=== PATIENT | female | born 1935 | race African-American/Black ===

== ENCOUNTER 2020-06-22 06:30 | Inpatient (IN) | payer MEDICARE ==
[~2020-06-22] VITALS: Ht 165.1 cm; Wt 75.7 kg
[2020-06-22 06:32] VITALS: BP 176/77
[2020-06-22 08:15] LABS: CALCIUM 9.7 mg/dL (8.5-10.1); CREATININE 1.2 mg/dL (0.6-1.0); POTASSIUM 3.9 mmol/L (3.5-5.1)
[2020-06-22 08:23] LABS: ALBUMIN 3.5 g/dL (3.4-5.0); TOTAL BILIRUBIN 0.9 mg/dL (0.2-1.0); TOTAL PROTEIN 7.4 g/dL (6.4-8.2)
[2020-06-22 08:57] LABS: ABSOLUTE NEUTROPHILS 4.6 thou/uL (1.4-8.2); BASOPHILS 1.2 % (0.0-2.0); EOSINOPHILS 1.3 % (0.0-3.0); HEMATOCRIT 39.8 % (37.0-47.0); HEMOGLOBIN 12.9 gm/dL (12.0-15.0); LYMPHOCYTES 20.1 % (24.0-44.0); MCH 28.5 pg (26.0-34.0); MCHC 32.4 g/dL (28.0-37.0); MCV 87.9 fL (80.0-100.0); MONOCYTES 11.2 % (1.0-8.0); POLYS 66.2 % (36.0-66.0); RBC 4.53 mil/uL (4.20-5.00); RDW 14.1 % (10.5-14.5)
[2020-06-22 09:21] LABS: URINE BILIRUBIN NEGATIVE (Negative); URINE BLOOD TRACE (Negative); URINE CLARITY CLEAR; URINE COLOR YELLOW; URINE GLUCOSE-RANDOM* NEGATIVE (Negative); URINE KETONES NEGATIVE (Negative); URINE LEUKOCYTES-REFLEX NEGATIVE (Negative); URINE NITRITE-REFLEX NEGATIVE (Negative); URINE PROTEIN (DIPSTICK) 2+ (Negative)
[2020-06-22 09:41] LABS: HYALINE CASTS 0-3 Few /LPF (None Seen); SQUAMOUS 0-3 Few /LPF (0-3)
[2020-06-22 09:42] LABS: CRYSTALS None Seen /LPF (None Seen)
[2020-06-22 09:43] LABS: BACTERIA-REFLEX 1-9 Few /HPF (None Seen); URINE RBC 0-2 Rare /HPF (0-2)
[2020-06-22 09:44] LABS: URINE WBC-REFLEX 0-5 Rare /HPF (0-5)
[2020-06-22 10:38] LABS: PLATELET COUNT 108 thou/uL (150-400)
[2020-06-22 16:03] VITALS: BP 165/81
[2020-06-22 17:10] VITALS: BP 165/81
[2020-06-22 20:00] VITALS: BP 184/93
--- NOTE | 2020-06-22 20:41 | NUR ---
PT CAME TO FLOOR APPROX. 1730. PT A&OX4, ROOM AIR, NO SIGNS OF DISTRESS.
[2020-06-22] MEDS ORDERED: PRINIVIL40 MG PO ×2 (22:15→22:17)
[2020-06-22] MEDS ORDERED: DESYREL150 MG PO (22:18)
[2020-06-22] MEDS ORDERED: CARVEDILOL25 MG PO (22:18)
[2020-06-22] MEDS ORDERED: GLIPIZIDE 10 MG10 MG PO (22:19)
[2020-06-22] MEDS ORDERED: MELOXICAM15 MG PO (22:19)
[2020-06-22] MEDS ORDERED: NEURONTIN100 MG PO (22:23)
[2020-06-22 23:48] VITALS: BP 184/88
[2020-06-22 23:51] LABS: FOLIC ACID 17.7 ng/mL (8.6-58.9)
[2020-06-23] VITALS (9 sets, daily range): BP systolic 121–155; BP diastolic 58–110
--- NOTE | 2020-06-23 01:29 | NUR ---
DAY RN STATED PATIENT ARRIVED ON FLOOR AT 1730. 1999 ADMISSION PROCESS STARTED. VS TAKEN. 2129 CALLED DAUGHTER UMESH TO ASSIST WITH ADMISSION PROCESS. 2229 ADMISSION PROCESS COMPLETED. ANTONIETTA GUERRERO NOTIFIED OF ADMISSION AND HOME MEDICATION LIST IN COMPUTER. ORDERS RECIEVED.
[2020-06-23 15:35] LABS: HEMATOCRIT 38.4 % (37.0-47.0); HEMOGLOBIN 12.9 gm/dL (12.0-15.0); MCH 29.3 pg (26.0-34.0); MCHC 33.5 g/dL (28.0-37.0); MCV 87.2 fL (80.0-100.0); RBC 4.4 mil/uL (4.20-5.00); RDW 13.9 % (10.5-14.5); WBC 6.2 thou/uL (4.0-11.0)
[2020-06-23 15:40] LABS: ANION GAP 11 mmol/L (7-16); BUN 23 mg/dL (7-18); CALCIUM 9.5 mg/dL (8.5-10.1); CHLORIDE 107 mmol/L (98-107); CO2 23 mmol/L (21-32); CREATININE 1.3 mg/dL (0.6-1.0); GLUCOSE 89 mg/dL (74-106); POTASSIUM 3.6 mmol/L (3.5-5.1); SODIUM 141 mmol/L (136-145)
[2020-06-23 15:48] LABS: TROPONIN-I <0.06 ng/mL (<0.06)
--- NOTE | 2020-06-23 17:35 | NUR ---
PATIENT ARRIVED ON THE UNIT AT 1420. PATIENT SETTLED IN AND PATIENT'S BELONGINGS BROUGHT DOWN AND ACCOUNTED FOR.
[2020-06-23 18:21] LABS: CHOLESTEROL 193 mg/dL (<200); HDL CHOLESTEROL 51 mg/dL (>40); LDL CHOLESTEROL 125 mg/dL (<100); TC:HDL 3.8 Ratio (Not establshd); TRIGLYCERIDE 88 mg/dL (<150); VLDL 18 mg/dL (<40)
--- NOTE | 2020-06-23 18:59 | NUR ---
Received awake on bed. Due medications given as prescribed, able to swallow meds w/o difficulty. On room air. Vital signs stable. On MS, not on telemtry; no complains and signs of chest pain, crushing sensation and heaviness. With elevated BP noted from previous shift- monitored, scheduled BP meds given as prescribed. On regular diet, assisted and encouraged in eating and drinking; no nausea, no vomiting and no abdominal pain noted. On blood sugar monitoring, taken and recorded accordingly. With on and off incontinence- checked frequently and changed as needed; able to use bedside commode with standby to moderate assist; falls bundle in place.
--- NOTE | 2020-06-24 02:53 | NUR ---
PT IS ALERT TO SELF OTHERWISE CONFUSED. TENDS TO BE IMPULSIVE. SIDE RAILS UP FOR SAFETY AND BED ALARM ON FOR SAFETY. PT ON ROOM AIR LUNGS ARE CLEAR. UP TO BATHROOM ASSIST X1 [facility] GAIT BELT. NIH SCALE IS 5 FOR STROKE. SLEEPS CALL LIGHT WITHIN REACH. WILL CONTINUE TO MONITOR AND ASSESS PER NURSING AT THIS TIME. REST DOESNT APPEAR IN PAIN.
[2020-06-24 03:19] VITALS: BP 141/58
--- NOTE | 2020-06-24 03:19 | NUR ---
PT'S DAUGHTER CALLED LAST EVENING REQUESTING TX TO [facility] TO SEE NEURO SURGEON. TRANSFER INITIATED WITH TRANSFER TEAM. ALL REQUESTED PAPERWORK FAXED. CALL RECEIVED BACK AT 0315 STATING PT'S INSURANCE NOT IN NETWORK AND WOULD BE [id number] IF PT WERE TO TX. INFO PASSED ON TO RN.
[2020-06-24 08:15] VITALS: BP 137/73
--- NOTE | 2020-06-24 11:29 | EKG ---
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: [place] : 1935 Requested By: Demar Decker Order Number: [id number] MD: Elio Burnett Measurements Intervals [place] Rate: 65 P: 41 OK: 128 QRS: 74 QRSD: 130 T: 199 QT: 448 QTc: 466 Interpretive Statements Atrial-ventricular dual-paced rhythm No further analysis attempted due to paced rhythm Baseline wander in lead(s) II,III,aVF No previous ECG available for comparison Electronically Signed On 06-24-2020 11:28:50 CDT by Elio Burnett [email or web address] <ELECTRONICALLY SIGNED> By: Elio Burnett MD, [facility] 06/24/20 1128 [id number] Elio Burnett MD, FACC /EPI
--- NOTE | 2020-06-24 14:52 | NUR ---
ATTEMPTS TO HIDE CONFUSION. IMPULSIVE. FALL PRECAUTIONS IN PLACE. SR PER TELE. SHE DISCONTINUED ONE OF HER SALINE LOCKS. NIH 5; WEAKNESS IN RIGHT ARM AND LEFT LEG. DENIES SANDY, CP.
[2020-06-24 16:20] VITALS: BP 175/84
[2020-06-24 21:08] VITALS: BP 190/82
[2020-06-25] VITALS (8 sets, daily range): BP systolic 129–178; BP diastolic 68–86
[2020-06-25 03:19] LABS: APTT 26.5 Seconds (24.5-32.8); PROTIME 10.8 Seconds (9.3-11.4)
[2020-06-25 03:20] LABS: HEMATOCRIT 37.8 % (37.0-47.0); HEMOGLOBIN 12.2 gm/dL (12.0-15.0); MCH 28.4 pg (26.0-34.0); MCHC 32.3 g/dL (28.0-37.0); MCV 88.1 fL (80.0-100.0); RBC 4.29 mil/uL (4.20-5.00); RDW 13.9 % (10.5-14.5); WBC 7.2 thou/uL (4.0-11.0)
[2020-06-25 03:28] LABS: CALCIUM 9.6 mg/dL (8.5-10.1); CREATININE 1.1 mg/dL (0.6-1.0); POTASSIUM 3.4 mmol/L (3.5-5.1)
--- NOTE | 2020-06-25 06:42 | NUR ---
PATIENS CARES WERE ASSUMED AT SHIFT CHANGE. PATIENT WAS ASSESSED AND MEDS WERE PASSED. PATIENT IS CONFUSED HOWEVER SHE IS REDIRECTABLE. ROUNDS WERE MADE. PATIENT DID BECOME CALMER THIS SHIFT PROGRESSED. SHE WAS ABLE TO SLEEP FOR APPROX SEVEN HOURS. THE BED IS IN A LOW AND LOCKED POSITION
--- NOTE | 2020-06-25 16:43 | NUR ---
PT CARE ASSUMED AT 0700. ASSESSMENTS CHARTED. MEDICATIONS CHARTED. IV. BSC/INCONTINENCE. ACHS. MED/SURG, NO TELEMETRY. PT IS CONFUSED, OFTEN ATTEMPTS TO GET OUT OF BED ON OWN WITHOUT CALLING. POSSIBLE D/C TO [facility]-REHAB TOMORROW.
--- NOTE | 2020-06-25 17:40 | NUR ---
met with patient and dtr at bedside. Patient resides at home alone. Flight of steps to enter home and multiple steps inside. Patient reports she uses a cane to ambulate up steps and also uses a crutch. She does not use a walker. Dtr reports she, her brother and grandson check on patient. Reports patient independent with her medications, bathing and all adls. [facility]N evaled patient. Dtr wants [facility] to inquire into other rehab facilities visitor policy. She reports [facility] is very strict. She wants her brother and grandson to visit. discussed if not accepted to 5N then skilled care option and reviewed visitor policy of skilled. casemgt following.
[2020-06-26] VITALS (10 sets, daily range): BP systolic 139–196; BP diastolic 49–91
--- NOTE | 2020-06-26 07:15 | NUR ---
PATIENTS CARES WERE ASSUMED AT SHIFT CHANGE. PATIENT WAS ASSESSED AND MEDS WERE PASSED. PATIENT WAS VERY CONFUSED THIS SHIFT. PATIENT NEEDED CONSTANT REDIRECTION TO STAY IN HER BED. SHE DOES FOLD SEVERAL TOWEL TO STAY ACTIVE. THIS PATIENT SLEEPS VERY LITTLE. ROUNDS WERE DONE. THE BED IS IN A LOW AND LOCKED POSITION.
--- NOTE | 2020-06-26 10:38 | NUR ---
Dtr requested information on other rehab facilities visitor hours. [facility] visitor until 6:30 different visitor each day. [facility] 8am-8pm different vistor each day. [facility] 1 visitor per day 8am-8pm different vistor each day. once leave cannot return. Attempted to call dtr and hr voicemail if full. cont to attemt to call dtr.
--- NOTE | 2020-06-26 13:55 | NUR ---
Spoke with dtr updated visiting hours of rehab facilities. Dtr wants to discuss with brother and will call casemgt back. 5N cont with tony.
--- NOTE | 2020-06-26 15:58 | NUR ---
spoke with dtr no decision on rehab unit. Dtr agreeable to fax referral to all rehab units to determine if accept insurnance and bed avail. Dtr has not ruled out [facility] acute rehab. Updated 5N. DIscussed with dtr patient is medically stable for discharge.
--- NOTE | 2020-06-26 17:06 | NUR ---
FAXED REFERRAL TO [facility] RECEIVED CONFIRMATION WILL F/U WITH FACILITY IN THE AM FAXED REFERRAL TO [facility] AND [facility] WILL F/U WITH BOTH FACILITIES IN THE AM.
--- NOTE | 2020-06-26 19:16 | NUR ---
PT CARE ASSUMED AT 0700. ASSESSMENTS CHARTED. MEDICATIONS CHARTED. RFA IV. MED/SURG. COVID NEGATIVE 06/25/20. BSC/INCONTINENCE OF BLADDER. ACHS. PT IS CONFUSED. POSSIBLE DISCHARGE TO REHAB TOMORROW.
[2020-06-27 03:56] VITALS: BP 196/75
--- NOTE | 2020-06-27 07:30 | NUR ---
ASSUME CARE 1900. PT/VITALS STABLE. DENEIS ANY PAIN. MODERATE TOLERANCE TO ACTIVITY. ADEQUATE REST/NO DISTRESS NOTED THROUGH THE SHIFT. INCONTINENT OF URINE. SKIN INTACT. ASSESSMENT CHARTED. PLAN IS POSSIBLE DISCHARGE TO 5N FOR REHAB WHEN NECESSARY. NEED CARDIOLOGY TO FOLLOW UP WITH PACEMAKER TO SEE IF PT CAN GET MRI OF THE LUMBAR BACK. WILL CONTINUE TO MONITOR AND FOLLOW WITH POC
[2020-06-27 07:47] VITALS: BP 151/55
--- NOTE | 2020-06-27 10:23 | NUR ---
PATIENT PLEASANT BUT CONFUSED. DOESNT UNDERSTAND WHERE SHE IS OR WHY SHE IS HERE. DENIES ANY PAIN OR NEEDS. PATIENT SPOKE WITH DAUGHTER THIS MORNING. DAUGHTER VOICED TO DR. CRUZ SHE WOULD LIKE HER TO DISCHARGE TO REHAB AT . UPDATED DAIRY CATTLE [employer]ARM[employer]. AWAITING TO HEAR PLAN. NOTED MRI NOT COMPLETE, RADIOLOGY STATES PATIENT NEEDS CARDIAC CLEARENCE DUE TO PACEMAMKER. DR. CRUZ STATES PATIENT CAN HAVE MRI OUTPATIENT.
[2020-06-27 11:06] VITALS: BP 125/48
--- NOTE | 2020-06-27 15:14 | NUR ---
Spoke with dtr she is intested in rehab. Faxed referral sp with Katharina in admissions. She returned call and reports patient not accepted. [facility] rehab declined patient as well. Sp with dtr options of [facility]. Dtr will return call in an hour with decesion.
[2020-06-27 15:18] VITALS: BP 149/59
--- NOTE | 2020-06-27 16:10 | NUR ---
NOTIFIED BY SARBJIT SHIRLEY THAT FAMILY IS WANTING RHOP SPOKE WITH MAKENZIE IN ADM SHE WILL START THE AUTHORIZATION ALSO FAXED CLINICAL UPDATE WITH TODAY'S THERAPY NOTIES RECEIVED CONFIRMATION.
[2020-06-27 19:48] VITALS: BP 145/62
[2020-06-28 04:41] VITALS: BP 166/66
[2020-06-28 07:34] VITALS: BP 138/53
--- NOTE | 2020-06-28 14:05 | NUR ---
[facility]. Submitted for auth. no need for new COVID test. Casemgt following.
[2020-06-28 15:02] VITALS: BP 151/55
--- NOTE | 2020-06-28 16:40 | NUR ---
Patient denied by insurance for acute rehab. Discussed with dtr skilled care. Dtr reports they are nursing homes. Discussed facilities have rehab to home program. Patient would rec post acute care with insurance. Reviewed option of home with care however patient needs 20/10 oversight, confusion at hospital. dtr wants to discuss with family. Updated phys.
--- NOTE | 2020-06-28 18:37 | NUR ---
RECEIVED PT'S CARE AROUND 0710; PT. ON BED RESTING WITH EYES CLOSED; EQUAL CHEST RISING NOTICED; NO HR MONITOR; DURING AM ASSESSMENT PT. ALERT TO PERSON AND PLACE; FORGETFUL THROUGH THE DAY; AM MEDICATIONS GIVEN; UP TO CHAIR WITH PT AND OT; EDUCATED ABOUT CALLING BEFORE GETTING UP FROM BED; NEEDS TO BE REMAINED; POOR APPETITE AT LUNCH AND DINNER; IMPULSIVE DURING THE AFTERNOON; IRRITABLE; ST. "I AM GOING HOME"; REFUSED TO GO BACK TO BED AND CHAIR; UPSET WHEN TRYING TO ADDRESS HER BACK TO CHAIR; TRYING TO REACH HIT DATA ARCHITECT; PHYSICIAN NOTIFIED; ORDERS RECEIVED; PRN MEDICATION GIVEN; BACK TO CHAIR ONCE TELLING PT. DAUGHTER WANTS TO TALK ON THE PHONE; DAUGHTER CALLED; ABLE TO TALK WITH PT. ON THE PHONE; DAUGHTER AT THE BED SIDE AFTER 1700; UPDATED ABOUT POC AND PT'S HEALTH; PER INSPECTOR RAG SORTING PT. DENIED FOR A. REHAB; PT. CALMER WITH DAUGHTER AT THE BED SIDE; AGREED CHECK BG; BACK TO BED BEFORE SHIFT CHANGED; ASSESSMENT CHARGED; FOLLOWING POC; WILL PASS ON REPORT;
[2020-06-28 19:44] VITALS: BP 147/56
[2020-06-29 03:16] VITALS: BP 178/70
--- NOTE | 2020-06-29 06:41 | NUR ---
PATIENTS CARES WERE ASSUMED AT SHIFT CHANGE. PATIENT WAS ASSESSED AND MEDS WERE PASSED. PATIENT CONTINUES TO BE VERY CONFUSED AT NIGHT. SHE DOES NOT UNDERSTAND WHY SHE CAN NOT GO HOME. PATIENT TAKES HER MEDS DIRECTED.SLEEPS MOST OF THIS SHIFT. UP TO BRP'S WITH A WALKER AND A GAIT BELT. ROUNDING WAS DONE. PATIENT IS EASY TO REDIRECT. BED ALARM ON. BED IS IN A LOW AND LOCKED POSITION.
[2020-06-29 08:00] VITALS: BP 169/68
[2020-06-29] MEDS ORDERED: ADULT LOW DOSE81 MG PO (11:46)
[2020-06-29] MEDS ORDERED: GABAPENTIN 100100 MG PO (11:46)
[2020-06-29 12:15] VITALS: BP 99/76
--- NOTE | 2020-06-29 14:16 | NUR ---
on-going assessment: CM REVIEWED CHART AND SPOKE WITH ATTENDING. PT IS EITHER ABLE TO GO HOME WITH HOME HEALTH BUT WILL NEED 24/7 SUPERVISION OR NEED PLACEMENT. MICHAEL SPOKE WITH PTS DAUGHTER WHO REPORTS THAT SHE TALKED WITH FAMILY AND THEY WOULD TRY AND ROTATE STAYING WITH HER BUT STATES SHE WAS TOLD HOME HEALTH WOULD BE THERE 8 HRS /DAY. CM NOTIFIED HER THAT HH ONLY COMES 2-3 TIMES A WEEK AND NOT THERE FOR 8HRS/DAY. DAUGHTER REPORTS SHE WOULD THEN HAVE TO DISCUSS WITH FAMILY SHE DID NOT KNOW THAT. DAUGHTER REPORTS AFTER SPEAKING WITH FAMILY THEY PREFER TO TRY AND SEE IF SHE CAN GO TO SNF. SHE REQUESTED A REFERRAL BE SENT TO [facility] FOR PATIENT. CM FAXED REFERRAL ALONG WITH NEGATIVE COVID TEST AND LEFT A VM WITH ADMISSIONS AT [facility] AND NOTIFIED THEM TO SEEK AUTH STACEY IF THEY CAN ACCEPT. AWAITING INPUT FROM [facility] AT THIS TIME PENDING ACCEPTANCE AND AUTH. CM WILL CONTINUE TO FOLLOW. NO LIKELY WEEKEND DISCHARGE DUE TO WAITING ON ACCEPTANCE.
[2020-06-29 17:00] VITALS: BP 182/83
[2020-06-29 21:08] VITALS: BP 146/64
--- NOTE | 2020-06-30 03:54 | NUR ---
Assumed pt care at 1900. Upon arrival to room, pt is sitting and resting in chair. Pt is alert and oriented x3. Denies any pain. Fall precaution in place. Assessment completed and documented. Scheduled meds administered to pt. Tolerated PO intake. No acute events overnight. Pending patient discharge. Continue to monitor. No further needs at this time.
[2020-06-30 04:59] VITALS: BP 133/71
[2020-06-30 09:20] VITALS: BP 180/57
[2020-06-30 12:27] VITALS: BP 163/80
[2020-06-30 16:00] VITALS: BP 151/79
--- NOTE | 2020-06-30 18:00 | NUR ---
ASSUMED CARE SHIFT CHANGE. ASSESSMENT CHARTED.MEDS GIVEN. VSS DENIES PAIN. O2 SATS WNL RA. PT UP X1 W WALKER TOLERATING WELL. PT IMPULISIVE AND AGITATED THIS SHIFT CONTINUING TO STATE "I WANT TO GET BACK HOME AND GO TO THE STORE." PT FREQUENTLY REORIENTED. PT CONTINUED TO ATTEMPT TO GET OUT OF BED WITH AGITATION. HALDOL GIVEN X1 PER ORDERS. PLAN FOR PLACEMENT THURSDAY. CONTINUING POC. WILL PASS ON REPORT TO NOC RN.
[2020-06-30 19:18] VITALS: BP 154/53
[2020-07-01] VITALS (7 sets, daily range): BP systolic 82–195; BP diastolic 61–91
--- NOTE | 2020-07-01 04:19 | NUR ---
PT HAS DEMENTIA AND IS CONFUSED ALL NIGHT. ALERT TO SELF. PT IS IMPULSIVE AND TRIES TO GET OUT OF BED FREQUENTLY. PLACED BACK TO BED. BED ALARM IS ON FOR PT SAFETY. DENIES ANY PAIN NOTED. LUNGS ARE CLEAR. BOWEL SOUNDS ACTIVE X4. TENDS TO FIGHT WHEN BEING CLEANED UP. CALL LIGHT WITHIN REACH IF NEEDS ASSTANCE FROM STAFF.
--- NOTE | 2020-07-01 14:40 | NUR ---
PT IS AX0X2; PT KNOWS SELF AND THAT SHE IS IN HOSPITAL. PT HAS HX OF DEMENTIA. PT HAS BEEN SITTING UP ON SIDE OF BED AND IN CHAIR THROUGH OUT SHIFT, WANTING TO GO HOME. PT HAS BEEN DISPLAYING SOME AGITATION, FOLDING HER BLANKET AND ATTEMPTING TO GET OUT OF CHAIR. PT DESIGNATED VISITOR AT BEDSIDE THIS PM. POC IS TO CONTINUE TO MONITOR VS; AWAITING PLACEMENT AUTH FOR FACILITIES IN AREA FOR SNF PER CASE MGMT NOTES. DR CRUZ CONSULTED. FALL PRECAUTIONS IN PLACE. NO CONCERNS AT THIS TIME.
[2020-07-02 04:26] VITALS: BP 160/69
--- NOTE | 2020-07-02 05:06 | NUR ---
pt vss with sbp in 160's, back and boo pain tramadol given and pt able to sleep tonight, repositioned as needed, incon't of urine, will con't to monitor per ppoc.
[2020-07-02 07:15] VITALS: BP 155/62
[2020-07-02 11:45] VITALS: BP 150/67
[2020-07-02 16:30] VITALS: BP 159/54
[2020-07-02 20:27] VITALS: BP 155/55
--- NOTE | 2020-07-03 03:16 | NUR ---
SLEEPING AT PRESENT TIME. REMIANS ORIENTED TO SELF AND PLACE. CONSTANTLY TRYING TO PUT FEET OVER SIDE RAILS AND GET UP SO HALDOL PO GIVEN WITH NOTED RELIEF. WANTS TO GO HOME. PROGRESSING SLOWLY TOWARDS GOALS FOR SKILLED. WORKING ON GOALS AND PLAN OF CARE FOR NOC. ASSISTED UP TO BATHROOM WITH GAIT BELT AND WALKER NEEDED. CONTIUE TO ASSES CLOSELY.
[2020-07-03 04:40] VITALS: BP 162/76
[2020-07-03 09:36] VITALS: BP 151/55
--- NOTE | 2020-07-03 12:34 | NUR ---
PT IS AWAKE, ORIENTED TO SELF AND PLACE. PT HAS BEEN SOMNOLENT THIS AM. PT KNOWS SHE IS NOT AT HOME, AND WANTS TO LEAVE. PT IS MED SURG, NOT ON MONITOR. VSS, AFEBRILE. POC IS AWAITING DISCHARGE TO [facility], ACCEPTANCE AND AUTH PENDING. DR SORIA CONSULTED. CASE MGMT CONSULTED. FALL PRECAUTIONS IN PLACE.
[2020-07-03 12:43] VITALS: BP 107/75
[2020-07-03 12:44] VITALS: BP 119/41
--- NOTE | 2020-07-03 14:37 | NUR ---
Nutrition: pt admit with intractable back pain, lumbar spinal spondylosis. Seen for LOS. Pt has had discharge orders x several days but awaiting placement. Eating well, 50-100% of meals on regular diet. Low nutrition risk
[2020-07-03 16:00] VITALS: BP 172/70
--- NOTE | 2020-07-03 17:22 | NUR ---
spoke with [facility]. They only rec partial fax updated. Sent updated clinical. Concens with use of Haldol. RN called and sp with RN regarding Haldol. At this time they have not accepted patient. Updated dtr and requested COVID.
[2020-07-03 20:15] VITALS: BP 164/70
[2020-07-04 03:45] VITALS: BP 167/65
--- NOTE | 2020-07-04 05:55 | NUR ---
patient aox1 confused and forgetful. patient encouraged fluids.patient needs minimum assistance with adl, bed mobility, transfer and toileting.fall precaution in place. patient in bed asleep at this time breathing regular and unlaboured.
[2020-07-04 08:00] VITALS: BP 138/96
[2020-07-04 12:22] VITALS: BP 153/59
--- NOTE | 2020-07-04 13:53 | NUR ---
patient accepted to [facility] at this time they do not have auth from [facility] but are seeking auth.
[2020-07-04 16:00] VITALS: BP 152/80
--- NOTE | 2020-07-04 16:00 | NUR ---
SPOKE WITH DAVID [facility] BOX BLANK MACHINE OPERATOR HELPER TANJA [phone]. PT HAS SKILLED REHAB AUTH FOR 14 DAYS. 2N [facility] PROFESSOR [facility] PRACTICE UPDATED.
--- NOTE | 2020-07-04 16:22 | NUR ---
WAS NOTIFIED BY OUR UR (PATRICIA) THAT PT'S INSURANCE GAVE AUTH# [id number] FOR 14 DAYS SKILLED STAY. NOTIFIED TC IN ADM AT [facility] OF AUTH CONFIRMATION AND SHE SAID SHE WILL HAVE TO GET THE AUTH FROM PT'S INSURANCE SHE HAS ONEL NUMBER TO CALL BUT SAID DC WILL NOT HAPPEN TIL TOMORROW.
--- NOTE | 2020-07-04 16:32 | NUR ---
UPDATED DTR AND UNIT NO AUTH TODAY.
--- NOTE | 2020-07-04 17:54 | NUR ---
PT IS AXOX2; PT KNOWS SELF AND KNOWS SHE IS IN HOSPITAL. PT HAS C/O SOME GENERALIZED PAIN. RX TRAMADOL GIVEN WITH PARTIAL RELIEF OR THE PT WILL REST IN BED. PT/OT CONSULTED. DR SORIA CONSULTED. CASE MGMT CONSULTED. POC IS TO CONTINUE MONITORING VS/BS. AWAITING DISCHARGE AUTH FROM INSURANCE FOR PT TO D/C TO [facility]. COVID TEST TAKEN 07/03/20, RESULTS ARE NEGATIVE. VSS, AFEBRILE. PT IS M/S AND NOT ON ADJUNCT LECTURER. PT IS IMPULSIVE, BUT CAN BE REDIRECTED TO STAY SEATED, OR TO ASK TO TOILET. PT DTR AT THE BEDSIDE. FALL PRECAUTIONS IN PLACE. NO CONCERNS AT THIS TIME.
[2020-07-04 20:12] VITALS: BP 191/82
[2020-07-05 03:06] VITALS: BP 160/68
[2020-07-05 08:00] VITALS: BP 173/76
[2020-07-05 08:04] VITALS: BP 173/76
--- NOTE | 2020-07-05 10:57 | NUR ---
Call rec'd from Daly at [facility] indicating they can accept the pt today and have ins auth in place. They will send a w/c van to pickup at 1300. Care team, pt and dtr aware and agreeable to the dc plan. Chart copy is in progress to be sent with the pt. Dc network planner to fax her neg covid on 07-03 along with the dc summary and instructions. Nursing is call report at this time.
[2020-07-05] MEDS ORDERED: LIPITOR 20 MG T20 M1 PO (11:17)
[2020-07-05] MEDS ORDERED: TRAMADOL 50 MG50 MG PO (11:17)
[2020-07-05] MEDS ORDERED: HALOPERIDOL 5 MG5 MG PO (11:17)
[2020-07-05] MEDS ORDERED: HUMALOG100 UNIT/1 SUBQ (11:17)
[2020-07-05] MEDS ORDERED: COLACE 100 MG100 MG PO (11:17)
[2020-07-05 11:34] VITALS: BP 126/74
[2020-07-05 12:00] VITALS: BP 126/74
--- NOTE | 2020-07-05 12:35 | NUR ---
FAXED DISCHARGE ORDERS, SUMMARY AND NEGATIVE COVID RESULT (07/03/20) TO [facility]. WILL CONFIRM WITH TC/LIAISON THAT SHE RECEIVED DOCUMENTS. [facility] P [phone]; FAX [phone]
--- NOTE | 2020-07-05 16:09 | NUR ---
PT CARE ASSUMED AT 0700. ASSESSMENTS CHARTED. MEDICATIONS CHARTED. IV D/C'D BY PT. COVID NEGATIVE 07/04/20. PT TAKES PILLS WITH WATER. PT TO BE DISCHARGED TO [facility]. TRANSPORT ARRIVED FOR PT AT 1325. DISCHARGE PAPERWORK AND CHART COPY GIVEN TO TRANSPORT STAFF.
== END 2020-07-05 13:26 | DRG 551 ==
LOC: ER 06:30 → EROBS 09:38 → EDBD 09:38 → 2N 09:38 → 4W 17:31 → 2N 06-23 14:47
PROVIDERS: Emergency Medicine; Nurse Practitioner; Psychiatry & Neurology Neurology; ADMIT Internal Medicine; ATTEND Internal Medicine
DX: M47.26 Other spondylosis with radiculopathy, lumbar region (principal); G93.41 Metabolic encephalopathy; I10 Essential (primary) hypertension; I65.21 Occlusion and stenosis of right carotid artery; G47.00 Insomnia, unspecified; E55.9 Vitamin D deficiency, unspecified; F03.90 Unspecified dementia, unspecified severity, without behavioral disturbance, psychotic disturbance, mood disturbance, and anxiety; S49.91XA Unspecified injury of right shoulder and upper arm, initial encounter; X58.XXXA Exposure to other specified factors, initial encounter; Z20.822 Contact with and (suspected) exposure to COVID-19; Z79.84 Long term (current) use of oral hypoglycemic drugs; Z79.899 Other long term (current) drug therapy; Y93.89 Activity, other specified; Y92.89 Other specified places as the place of occurrence of the external cause; Y99.8 Other external cause status
CPT/HCPCS: 10040; 10081; 10797